=== PATIENT | female | born 1945 | race Caucasian/White ===

== ENCOUNTER 2017-06-14 12:38 | Day surgery (SDC) | payer BC, MEDICARE ==
[2017-06-14] MEDS ORDERED: PROPOFOL 10 MG/ML VIAL IV ONE (12:39)
[2017-06-14] MEDS ORDERED: LIDOCAINE 2% MDV (20MG/ML) 20ML VIAL IV ONE (12:39)
[2017-06-14] MEDS ORDERED: FENTANYL PF 100MCG/2ML VIAL IV ONE (12:39)
--- NOTE | 2017-06-15 13:31 | Operative Note ---
DATE OF SURGERY: 06/14/2017 OPERATIONS: 1. ESOPHAGOGASTRODUODENOSCOPY. 2. COLONOSCOPY with cold forceps polypectomy and hemoclip x2. PREOPERATIVE DIAGNOSES: 1. Change in bowel habits and stool caliber. 2. Oropharyngeal dysphagia. POSTOPERATIVE DIAGNOSES: 1. Normal upper endoscopy. 2. Sigmoid diverticulosis. 3. Ascending colon polyp. PREPARATION QUALITY: Good to excellent. ESTIMATED BLOOD LOSS: Less than 25 mL. COMPLICATIONS: None apparent. SPECIMENS: Ascending colon polyp. PROCEDURE: After informed consent was obtained from the patient, she was placed in the left lateral decubitus position in the endoscopy suite, sedated and monitored by the department of anesthesia. Once sedated, a well-lubricated EDX155 gastroscope was placed in the posterior oropharynx and under direct visualization passed to the proximal esophagus. The endoscope was advanced through the proximal, mid, and distal esophagus. The esophagus in its length was unremarkable. The GE junction was unremarkable. No changes suggestive of eosinophilic esophagitis or reflux esophagitis were noted. No mass lesions were seen. No varices were seen. The gastric body, antrum, pylorus, duodenal bulb and sweep were also unremarkable. J-turn views of the proximal stomach were unrevealing. The endoscope was then straightened and retracted from the patient with no new findings noted. No interventions were performed. Digital rectal exam was unremarkable. A well-lubricated [id number] colonoscope was inserted into the rectum and advanced to the cecum. The cecum was unremarkable. The ascending colon demonstrated a 4 mm polyp which was sessile and removed with a cold forceps. There was a small amount of bleeding noted at the site that persisted. As a result, 2 hemoclips were applied with subsequent cessation of bleeding. Less than or equal to 25 mL of blood loss was noted. The remainder of the ascending colon, transverse colon, and descending colon were unremarkable. The sigmoid colon demonstrated moderate diverticular changes. No polyps were seen. No mass lesions were seen. I could not appreciate any structures. The rectum was unremarkable in forward and in J-turn views. The endoscope was straightened, the rectal ampulla deflated, and the endoscope was removed. RECOMMENDATIONS: I would suggest the patient follow a high-fiber diet and increase her fiber content. She was encouraged to stop smoking. We will also obtain a video swallowing exam for further evaluation of her swallowing complaints. She will require repeat colonoscopy in 5 years. As always, thank you for allowing me to participate in the healthcare of your patients. CC: BUZZ Pang
== END 2017-06-14 14:42 | disposition home or self-care (01) ==
LOC: HOP 12:38
PROVIDERS: ATTEND Internal Medicine Gastroenterology
DX: R19.4 Change in bowel habit (principal); R13.12 Dysphagia, oropharyngeal phase; D12.2 Benign neoplasm of ascending colon; E78.00 Pure hypercholesterolemia, unspecified; J43.9 Emphysema, unspecified